=== PATIENT | female | born 1950 | race Asian ===

== ENCOUNTER 2020-07-28 14:01 | Emergency (ER) | payer MEDICARE ==
[~2020-07-28] VITALS: Ht 154.9 cm; Wt 61.7 kg
[2020-07-28] MEDS ORDERED: PROPARACAINE OPHTH 0.5%, 15ML EACHEYE ONE (14:30)
[2020-07-28] MEDS ORDERED: FLUORESCEIN OPHTHALMIC 1 MG STRIP EACHEYE ONE (14:30)
--- NOTE | 2020-07-28 14:42 | NUR ---
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
[2020-07-28] MEDS ORDERED: FLUORESCEIN OPHTHALMIC 1 MG STRIP ONE (14:59)
[2020-07-28] MEDS ORDERED: PROPARACAINE OPHTH 0.5%, 15ML ONE (14:59)
--- NOTE | 2020-07-28 15:24 | NUR ---
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
--- NOTE | 2020-07-28 15:57 | NUR ---
PT DOWN IN MRI FOR SCAN
[2020-07-28 16:35] VITALS: BP 135/79
== END 2020-07-28 17:23 | disposition home or self-care (01) ==
LOC: ED 17:21
DX: H53.8 Other visual disturbances (principal)
CPT/HCPCS: 70551; 99284